=== PATIENT | female | born 1930 | race Hispanic/Latino ===

== ENCOUNTER 2018-07-30 08:17 | Inpatient (IN) | payer MEDICARE, OTHER ==
[2018-07-30 08:22] VITALS: BMI 21.8
[2018-07-30] MEDS ORDERED: Digoxin 500 mcg/2ml (0.5 mg/2ml) Inj IVP STA (08:53)
[2018-07-30 09:12] LABS: BASO % 0.7 % (0.0-2.0); EOS # 0.1 K/uL (0.0-0.7); EOS % 1.4 % (0.0-4.0); HEMOGLOBIN 14.3 g/dL (12.0-16.0); LYMPH # 0.9 K/uL (1.0-4.3); LYMPH % 13.2 % (20.0-40.0); MEAN CELL VOLUME 92.5 fl (81.0-99.0); MEAN CORPUSCULAR HEMOGLOBIN 31.2 pg (27.0-31.0); MEAN CORPUSCULAR HGB CONC 33.8 g/dL (33.0-37.0); MEAN PLATELET VOLUME 9.9 fl (7.2-11.7); MONO # 0.7 K/uL (0.0-0.8); MONO % 9.7 % (0.0-10.0); NEUT # 5.1 K/uL (1.8-7.0); NRBC % 0.1 % (0.0-0.0); RBC 4.59 Mil/uL (3.80-5.20); RED CELL DISTRIBUTION WIDTH 13.9 % (11.5-14.5); WHITE BLOOD COUNT 6.8 K/uL (4.8-10.8)
--- NOTE | 2018-07-30 09:30 | ED PDOC ---
HPI: Hypertension/Hypotension Time Seen by Provider: 07/30/18 08:35 Chief Complaint (Nursing): Dizziness/Lightheaded Chief Complaint (Provider): Dizziness/Lightheaded History Per: Patient History/Exam Limitations: no limitations Onset/Duration Of Symptoms: Days (x 2) Current Symptoms Are (Timing): Still Present Quality Of Symptoms: Rapid Heart Rate Severity: Moderate Additional Complaint(s): 88 year old female with a history of atrial fibrillation presents to the ED for evaluation of palpitations x 2 days. Patient is accompanied by Dr. 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 He reports that the patient called yesterday and he recommended that she come to the ED immediately. However, she was not able to come until this morning. According to Dr. Laughlin she has a history of interior wall infarct and was diagnosed with atrial fibrillation 1 1/2 years ago. Patient takes Metoprolol and Xorelto which she tolerated until yesterday. On triage EKG, patient is in atrial flutter. Dr. Laughlin is requesting admission and initial dose of Digoxin to slow heart rate to 3:1 conduction rate. She reports compliance with her medications. Denies fever, chest pain, nausea and vomiting. PMD: Dr. Frances Laughlin Past Medical History Reviewed: Historical Data, Nursing Documentation, Vital Signs Vital Signs: Last Vital Signs Temp 97.7 F 07/30/18 08:35 Pulse 132 H 07/30/18 08:35 Resp 22 07/30/18 08:35 BP 114/65 07/30/18 08:35 Pulse Ox 97 07/30/18 08:35 - Medical History PMH: Atrial Fibrillation Denies: Chronic Kidney Disease - Surgical History Surgical History: No Surg Hx - Family History Family History: States: Unknown Family Hx - Allergies Allergies/Adverse Reactions: Allergies Allergy/AdvReac Type Severity Reaction Status Date / Time No Known Allergies Allergy Verified 07/30/18 08:33 Review of Systems ROS Statement: Except As Marked, All Systems Reviewed And Found Negative Constitutional: Negative for: Fever Cardiovascular: Positive for: Palpitations (patient is in atrial flutter). Negative for: Chest Pain Gastrointestinal: Negative for: Nausea, Vomiting Physical Exam - Reviewed Nursing Documentation Reviewed: Yes Vital Signs Reviewed: Yes - Physical Exam Appears: Positive for: Well, Non-toxic, No Acute Distress Head Exam: Positive for: ATRAUMATIC, NORMAL INSPECTION, NORMOCEPHALIC Skin: Positive for: Normal Color, Warm, Dry Eye Exam: Positive for: EOMI, Normal appearance, PERRL Neck: Positive for: Normal, Painless ROM, Supple Cardiovascular/Chest: Positive for: Tachycardia (on the monitor) Respiratory: Positive for: Normal Breath Sounds. Negative for: Respiratory Distress Gastrointestinal/Abdominal: Positive for: Normal Exam, Soft. Negative for: Tenderness Back: Positive for: Normal Inspection. Negative for: L CVA Tenderness, R CVA Tenderness Extremity: Positive for: Normal ROM (x 4). Negative for: Deformity Neurological/Psych: Positive for: Awake, Alert, Normal Tone, Oriented. Negative for: Motor/Sensory Deficits - Laboratory Results Result Diagrams: 07/30/18 09:04 - ECG O2 Sat by Pulse Oximetry: 97 (RA) Pulse Ox Interpretation: Normal Medical Decision Making Medical Decision Makin:51 MDM: Patient with new onset atrial flutter She will be admitted under Dr. Laughlin as per his request. Patient will be given an initial dose of Digoxin in the ER 09:08 Patient is admitted to telemetry for atrial flutter under Dr. Laughlin. Scribe Attestation: Documented by Lydia Schulz, acting as a scribe Prateek Birmingham MD Provider Scribe Attestation: All medical record entries made by the Scribe were at my direction and personally dictated by me. I have reviewed the chart and agree that the record accurately reflects my personal performance of the history, physical exam, medical decision making, and the department course for this patient. I have also personally directed, reviewed, and agree with the discharge instructions and disposition. Disposition - Clinical Impression Clinical Impression: Atrial flutter - Patient ED Disposition Is Patient to be Admitted: Yes - Disposition Disposition Time: 09:08 Condition: FAIR - Pt Status Changed To: Hospital Disposition Of: Inpatient - Admit Certification Admit to Inpatient:: After my assessment, the patient will require hospitalization for at least two midnights. This is because of the severity of symptoms shown, intensity of services needed, and/or the medical risk in this patient being treated as an outpatient.
--- NOTE | 2018-07-30 09:59 | CP.PCM.HP ---
History of Present Illness - History of Present Illness History of Present Illness: This 88-year-old lady who has been under my care since 2009 when she suffered an acute myocardial infarction had complaints of feeling lightheaded upon standing up from sitting position which promptly resolves on si tting down or lying down. This has been going on for approximately 2-3 weeks. There has not been a syncopal episode. There is no headaches or palpitations. The patient has had mild to moderate degree of dyspnea on exertion because of COPD as a consequence of chronic cigarette use. The patient still continues to smoke. She also has a history of hypertension dyslipidemia. She has never suffered from congestive cardiac failure. The patient had developed atrial fibrillation last year and was started on oral anticoagulation in the form of Xarelto and she had been taking 50 mg of metoprolol every day for rate control. Physical examination shows an elderly anxious male who is thin built and is able to lie virtually flat and carry on a conversation. She breathes at 16 breaths/min and has a pulse oximetry of 96% on room air. Her heart rate was 131 bpm manager cardiac cath which also revealed that she was in atrial flutter with 2-1 conduction. Her blood pressure was 112/70 mmHg lying down and 100/70 mmHg sitting up. Her pedal pulses were feeble but distinctly present. Her extremities were warm and nailbeds were pink. There was no central or peripheral cyanosis. There was no clubbing. The chest was mildly emphysematous. The apex was not palpable. The first and second heart sounds were distant but normal there was a faint S3 gallop. There were no rales. Her jugular venous pressure was not elevated and there was no edema over her lower extremities. Her electrocardiogram showed atrial flutter with 2-1 conduction and a poor R wave progression from V1 to V3. There were nonspecific ST-T changes. Lab data was still awaited. 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 Once her heart rate slows down I will obtain an echocardiogram to evaluate her left ventricular systolic function. At this juncture she does not display any evidence of congestive cardiac failure. Present on Admission - Present on Admission Any Indicators Present on Admission: No Past Patient History - Past Social History Smoking Status: Light Smoker < 10 Cigarettes Daily - CARDIAC Hx Atrial Fibrillation: Yes - PULMONARY Hx Respiratory Disorders: No - NEUROLOGICAL Hx Neurological Disorder: No - HEENT Hx HEENT Problems: No - RENAL Hx Chronic Kidney Disease: No - ENDOCRINE/METABOLIC Hx Endocrine Disorders: No - HEMATOLOGICAL/ONCOLOGICAL Hx Blood Disorders: No - INTEGUMENTARY Hx Dermatological Problems: No - MUSCULOSKELETAL/RHEUMATOLOGICAL Hx Musculoskeletal Disorders: No - GASTROINTESTINAL Hx Gastrointestinal Disorders: No - GENITOURINARY/GYNECOLOGICAL Hx Genitourinary Disorders: No - PSYCHIATRIC Hx Psychophysiologic Disorder: No Hx Substance Use: No - SURGICAL HISTORY Hx Surgeries: Yes Other/Comment: herniated disc 1967. cyst removal from breast - ANESTHESIA Hx Anesthesia: Yes Hx Anesthesia Reactions: No Hx Malignant Hyperthermia: No Meds Allergies/Adverse Reactions: Allergies Allergy/AdvReac Type Severity Reaction Status Date / Time No Known Allergies Allergy Verified 07/30/18 08:33 Results - Vital Signs Recent Vital Signs: Last Vital Signs Temp 97.7 F 07/30/18 08:35 Pulse 132 H 07/30/18 08:35 Resp 22 07/30/18 08:35 BP 114/65 07/30/18 08:35 Pulse Ox 97 07/30/18 09:36 - Labs Result Diagrams: 07/30/18 09:04 Labs: Laboratory Results - last 24 hr 07/30/18 09:04 WBC 6.8 RBC 4.59 Hgb 14.3 Hct 42.4 MCV 92.5 MCH 31.2 H MCHC 33.8 RDW 13.9 Plt Count 209 MPV 9.9 Neut % (Auto) 75.0 Lymph % (Auto) 13.2 L [place] % (Auto) 9.7 Eos % (Auto) 1.4 Baso % (Auto) 0.7 Neut # (Auto) 5.1 Lymph # (Auto) 0.9 L [place] # (Auto) 0.7 Eos # (Auto) 0.1 Baso # (Auto) 0.0
[2018-07-30 10:08] LABS: CALCIUM 10.1 mg/dL (8.4-10.2)
[2018-07-30 10:20] LABS: TROPONIN I 0.017 ng/mL (0.00-0.120)
--- NOTE | 2018-07-30 13:16 | RAD ---
Date of service: 07/30/2018 HISTORY: possible admission COMPARISON: No prior. FINDINGS: LUNGS: The lungs are well inflated and clear. The lungs are hyperinflated and there is peribronchial thickening with chronic changes in both lungs. PLEURA: No pleural effusions or pneumothorax. CARDIOVASCULAR: There is mild cardiomegaly. There are aortic atherosclerotic calcifications present. OSSEOUS STRUCTURES: Within normal limits for the patient's age. VISUALIZED UPPER ABDOMEN: Normal. OTHER FINDINGS: None. IMPRESSION: No active pulmonary disease. COPD.
--- NOTE | 2018-07-30 20:23 | CARD ---
APPROVED REPORT Date of service: 07/30/2018 EKG Measurement Heart [id number] DE P266 [id number] <Conclusion> Atrial flutter with variable AV block Left axis deviation Possible Anteroseptal infarct, age undetermined Abnormal ECG
--- NOTE | 2018-07-30 20:30 | CARD ---
APPROVED REPORT Date of service: 07/30/2018 EKG Measurement Heart [id number] DE P267 [id number] <Conclusion> Atrial flutter with 2:1 AV conduction Possible Anterior infarct, age undetermined Abnormal ECG
[2018-07-31 08:10] VITALS: RESP 18
[2018-07-31] MEDS ORDERED: Digoxin 500 mcg/2ml (0.5 mg/2ml) Inj IVP ONE (09:50)
--- NOTE | 2018-07-31 09:50 | CP.PCM.PN ---
Subjective - Date & Time of Evaluation Date of Evaluation: 07/31/18 Time of Evaluation: 09:30 - Subjective Subjective: The patient had a heart rate between 60 and 90 bpm all day yesterday and felt well. Last night a dose of metoprolol was withheld because of a systolic blood pressure of 100 mmHg Telemetry shows that at 7:15 AM this morning the patient again developed a 2-1 AV conduction with a heart rate between 130 and 140 bpm. The patient again reports a sense of lightheadedness on walking to the bathroom which she did not feel all day yesterday. Her blood pressure now is 110/70 mmHg lying down and standing up. Her jugular venous pressure was not elevated and there was no edema over his lower extremity. Review of her echocardiogram shows preserved left ventricular systolic function with a mild degree of aortic regurgitation and moderate to severe tricuspid regurgitation with a pulmonary artery systolic pressure of 42 mmHg. Inferior vena cava was dilated and did not collapse with deep inspiration. I have given her a dose of digoxin 0.125 mg intravenously If her heart rate slows down the patient will be allowed to return home taking 0.125 mg of digoxin every day with metoprolol. Her amlodipine has been discontinued. Objective - Vital Signs/Intake and Output Vital Signs (last 24 hours): Temp Pulse Resp BP Pulse Ox 98.0 F 69 18 110/74 90 L 07/31/18 08:00 07/31/18 08:28 07/31/18 08:00 07/31/18 08:28 07/31/18 08:00 - Medications Medications: Current Medications Digoxin (Lanoxin) 0.125 mg IVP ONCE ONE Stop: 07/31/18 09:51 Lisinopril (Zestril) 10 mg PO DAILY [facility] Last Admin: 07/31/18 08:28 Dose: 10 mg Metoprolol Tartrate (Lopressor) 50 mg PO Q12 [facility] Last Admin: 07/31/18 08:16 Dose: 50 mg Rivaroxaban (Xarelto) 20 mg PO DAILY [facility]; Protocol Last Admin: 07/31/18 08:33 Dose: 20 mg - Labs Labs: 07/30/18 09:04 07/30/18 09:32
[2018-07-31 10:05] VITALS: PULSE 69
[2018-07-31 12:17] VITALS: BP 105/57; PULSE 67; TEMP 97.8; O2SAT 96
--- NOTE | 2018-08-01 11:54 | CARD ---
APPROVED REPORT Date of service: 07/30/2018 EXAM: Two-dimensional and M-mode echocardiogram with Doppler and color Doppler. Other Information Quality : GoodRhythm : Atrial Flutter INDICATION Abnormal EKG/Arrhythmia 2D DIMENSIONS IVSd1.26 (0.7-1.1cm)LVDd4.54 (3.9-5.9cm) LVOT Diameter2.03 (1.8-2.4cm)PWd1.00 (0.7-1.1cm) IVSs1.06 (0.8-1.2cm)LVDs3.46 (2.5-4.0cm) FS (%) 23.8 %PWs1.33 (0.8-1.2cm) M-Mode DIMENSIONS Left Atrium (MM)4.09 (2.5-4.0cm)IVSd1.06 (0.7-1.1cm) Aortic Root3.09 (2.2-3.7cm)LVDd4.65 (4.0-5.6cm) Aortic Cusp Exc.1.50 (1.5-2.0cm)PWd1.21 (0.7-1.1cm) IVSs1.71 cmFS (%) 48 % LVDs2.41 (2.0-3.8cm)PWs1.53 cm Aortic Valve AoV Peak Wscolxqh279.8cm/sAoV VTI34.1cmAO Peak GR.11mmHg LVOT Peak Ungjqhfa59.5cm/sLVOT VTI15.31cmAO Mean GR.6mmHg LILIBETH (VMAX)0.05xx8XVU (VTI)0.79ug9RM P 1/2 Dgsz663ps Mitral Valve E/A ratio0.0 TDI E/Lateral E'0.0E/Medial E'0.0 Tricuspid Valve TR Peak Gryjfdjv013vh/sRAP [id number] Peak Gr.28mmHg [id number] LEFT VENTRICLE The left ventricle is normal size. There is normal left ventricular wall thickness. Left ventricle systolic function is normal. LVEF is 55-60%. There is normal LV segmental wall motion. Diastolic function could not be assesed due to A Flutter RIGHT VENTRICLE The right ventricle is mildly to moderately dilated. The right ventricular systolic function is normal. ATRIA The left atrium size is normal. The right atrium is mildly dilated. AORTIC VALVE The aortic valve is mildly sclerotic. There is mild aortic regurgitation. There is no aortic valvular stenosis. MITRAL VALVE The mitral valve is normal in structure. There is no evidence of mitral valve prolapse. There is no mitral valve stenosis. Mitral regurgitation is mild to moderate. TRICUSPID VALVE The tricuspid valve is normal in structure. There is moderate to severe tricuspid regurgitation. Right ventricular systolic pressure is estimated at 42 mmHg. There is moderate pulmonary hypertension. PULMONIC VALVE The pulmonary valve is normal in structure. There is no pulmonic valvular regurgitation. GREAT VESSELS The aortic root is normal in size. The IVC is dilated. The IVC collapses <50% with inspiration. PERICARDIAL EFFUSION The pericardium appears normal. <Conclusion> The left ventricle is normal size. There is normal left ventricular wall thickness. There is normal LV segmental wall motion. Left ventricle systolic function is normal. LVEF is 55-60%. The right atrium is mildly dilated. The right ventricle is mildly to moderately dilated. There is moderate to severe tricuspid regurgitation. Right ventricular systolic pressure is estimated at 42 mmHg. There is moderate pulmonary hypertension. The IVC is dilated. The IVC collapses <50% with inspiration.
--- NOTE | 2018-08-02 09:24 | PQF ---
PROVIDER RESPONSE TEXT: Atrial flutter was typical REVIEWER QUERY TEXT: Atrial Flutter Type Atrial flutter is documented in the Medical Record. Please specify the type such as: -- Atypical - (Type II) -- Typical - (Type I) -- Other (please specify in the medical record) -- Unable to determine The patient's Clinical Indicators include: EKG: Atrial flutter with variable AV block , Left axis deviation , Possible Anteroseptal infarct, age undetermined Medication: Digoxin added Query created by: Sylvie Penn on 08/02/2018 9:01 AM Electronically signed by: Aris Laughlin MD 08/02/2018 9:21 AM
--- NOTE | 2018-08-02 09:24 | PQF ---
PROVIDER RESPONSE TEXT: Atrial fibrillation was chronic REVIEWER QUERY TEXT: Atrial Fibrillation Type Atrial fibrillation is documented in the Medical Record. Please specify the type Such as: -- Chronic -- Paroxysmal -- Permanent -- Persistent -- Other, please specify The patient's Clinical Indicators include: EKG: Atrial flutter with variable AV block , Left axis deviation , Possible Anteroseptal infarct, age undetermined Medication: Digoxin added, Metoprolol, Xarelto Query created by: Sylvie Penn on 08/02/2018 9:02 AM Electronically signed by: Aris Laughlin MD 08/02/2018 9:21 AM
== END 2018-07-31 12:35 | disposition home or self-care (01) | DRG 310 ==
LOC: H.ER 08:17 → H.ERHOLD 08:51 → H.TEL 15:33
PROVIDERS: ADMIT Internal Medicine Cardiovascular Disease; ATTEND Internal Medicine Cardiovascular Disease
DX: I48.4 Atypical atrial flutter (principal); J44.9 Chronic obstructive pulmonary disease, unspecified; I48.2 Chronic atrial fibrillation; F17.200 Nicotine dependence, unspecified, uncomplicated; I25.2 Old myocardial infarction; E78.5 Hyperlipidemia, unspecified; I07.1 Rheumatic tricuspid insufficiency; I10 Essential (primary) hypertension; I25.10 Atherosclerotic heart disease of native coronary artery without angina pectoris; I35.1 Nonrheumatic aortic (valve) insufficiency; R00.2 Palpitations; R42 Dizziness and giddiness